=== PATIENT | male | born 1950 | race Hispanic/Latino ===

== ENCOUNTER 2017-06-28 13:14 | Day surgery (SDC) | payer MEDICARE ==
[~2017-06-28 13:14] MED LIST: ROBINUL ONE; XYLOCAINE MPF 2% ONE
--- NOTE | 2017-06-28 13:15 | History and Physical Report ---
History of Present Illness Date of examination: 06/28/17 Date of admission: 06/28/2017 Chief complaint: Colorectal cancer screening. History of present illness: Patient's is 66-year-old male who presents for colorectal cancer screening. No additional complaints are provided. Past History Past Medical History: hypertension Social history: denies: smoking, alcohol abuse Medications and Allergies Allergies Allergy/AdvReac Type Severity Reaction Status Date / Time No Known Allergies Allergy Unverified 06/26/17 11:38 Active Meds: Active Medications Sodium Chloride (Nacl 0.9% 1000 Ml) 1,000 mls @ 50 mls/hr IV DIRECT JESSE Review of Systems All systems: negative Exam - Constitutional General appearance: Present: no acute distress, well-nourished - EENT Eyes: Present: PERRL ENT: hearing intact, clear oral mucosa - Neck Neck: Present: supple, normal ROM - Respiratory Respiratory effort: normal Respiratory: bilateral: CTA - Cardiovascular Heart Sounds: Present: S1 & S2. Absent: rub, click - Extremities Extremities: pulses symmetrical, No edema Peripheral Pulses: within normal limits - Abdominal General gastrointestinal: Present: soft, non-tender, non-distended, normal bowel sounds Male genitourinary: Present: normal - Integumentary Integumentary: Present: clear, warm, dry - Musculoskeletal Musculoskeletal: gait normal, strength equal bilaterally - Psychiatric Psychiatric: appropriate mood/affect, intact judgment & insight - Neurologic Neurologic: CNII-XII intact, moves all extremities Assessment and Plan Colorectal cancer screening. Plan: Colonoscopy will be done to evaluate patient. Additional recommendations will be made depending on the findings on colonoscopy.
[2017-06-28] MEDS: NACL 0.9% 1000 ML 1,000 ML IV SCH ×2 (14:39→17:05)
[2017-06-28] MEDS ORDERED: WATER FOR IRRIG STERILE IR ONE (15:50)
--- NOTE | 2017-06-28 15:56 | Anesthesia Day of Surgery ---
Anesthesia Day of Surgery - Day of Surgery Patient Examined: Yes Patient H&P Reviewed: Yes Patient is NPO: Yes
--- NOTE | 2017-06-28 15:56 | Anesthesia Consultation ---
Anesthesia Consult and Med Hx Date of service: 06/28/17 - Airway Anesthetic Teeth Evaluation: Edentulous ROM Head & Neck: Adequate Mental/Hyoid Distance: Adequate Mallampati Class: Class II Intubation Access Assessment: Probably Good - Pulmonary Exam CTA: Yes - Cardiac Exam Cardiac Exam: RRR - Pre-Operative Health Status ASA Pre-Surgery Classification: ASA3 Proposed Anesthetic Plan: MAC - Pulmonary Hx Smoking: Yes COPD: Yes (USES INHALER) Hx Sleep Apnea: No - Cardiovascular System Hx Hypertension: Yes Hx Peripheral Vascular Disease: Yes - Central Nervous System Hx Neuromuscular Disorder: No Hx Psychiatric Problems: No - Gastrointestinal Hx Gastroesophageal Reflux Disease: No - Endocrine Hx Renal Disease: No Hx Insulin Dependent Diabetes: No - Hematic Hx Anemia: No Hx Sickle Cell Disease: No - Other Systems Hx Alcohol Use: No Hx Substance Use: Yes (RECOVERING ADDICT) Hx Cancer: No Hx Obesity: No
[2017-06-28] MEDS ORDERED: DIPRIVAN 10 MG/ML IV ONE ×5 (15:59→17:33)
[2017-06-28] MEDS ORDERED: GI SPOT IJ ONE (16:20)
[2017-06-28] MEDS ORDERED: D50W (25GM) Syringe IV ONE (16:43)
[2017-06-28] MEDS ORDERED: ZOFRAN ONE (17:58)
[2017-06-28] MEDS ORDERED: DILAUDID ONE (18:01)
--- NOTE | 2017-06-28 18:16 | Operative Report ---
Operative Report Operative Report: Date of procedure: 06/28/2017 Procedure: Colonoscopy with Endoscopic mucosal resection, Hot Biopsy Polypectomy with avulsion of residual polyp , Submucosal injection, Ablation of polyp base, Multiple hemoclip applications. Attending physician: Erwin Carter MD Plant Sciences Professor: Erwin Carter MD Indication: Patient is a 66-year-old male who presents for screening colonoscopy. This colonoscopy serves to evaluate patient so that treatment may be directed based on the findings. Consent: Informed consent was obtained after advising the patient and family regarding nature of this procedure, its indications, potential benefits as well as possible complications including but not limited to bleeding perforation and adverse reaction to medication, infection as well as other cardiopulmonary complications. An informed written and verbal consent was then obtained after due opportunity was provided for questions and answers. Monitoring: Patient was monitored continuously with pulse oximetry and electrocardiographic recordings as well as blood pressure recordings. Vital signs remained stable throughout this procedure with no untoward events. Preoperative assessment: Patient was assessed immediately prior to this procedure for capacity to tolerate monitored anesthesia care and moderate sedation as well as general anesthesia. Patient's ASA classification is 2, Mallampati class is 2, Hyomental distance is 3. Instrument: [employer] video colonoscope Medications: Propofol given intravenously in divided doses. For details please refer to anesthesia records. Description of procedure: Patient was placed in the left lateral decubitus position after achieving sedation, a digital rectal examination was performed following which the colonoscope was introduced into the anal verge and advanced to the cecum which was identified by the cecal valve, the appendiceal orifice, as well as by the cecal strap and direct transillumination. The colonoscope was subsequently withdrawn with careful inspection of all mucosal surfaces. Patient tolerated this procedure well and was subsequently taken to the recovery room. The following findings were noted. Findings: Patient had thick densely adherent liquid stool in various sections of the colon. This was vigorously irrigated as much as possible to improve and optimized the visualization of the colon. There were a few scattered diverticula in the sigmoid colon, descending colon and ascending colon. There was a large semi-circumferential polypoid mass lesion seen at the hepatic flexure. This was broad-based and sessile. The endoscopic appearance suggestive possible large polyp versus colon cancer. This was injected with submucosal injection of saline to elevate. After elevating this polyp, endoscopic mucosal resection was performed. Residual polyp at the edges were removed by hot biopsy using the avulsion technique. Subsequently, the base of the polyp and the edges were then ablated completely. Following this, multiple hemoclips were used to close the defect. In all 3 hemoclips were applied. The rest of the colon to the cecum was otherwise normal except for substantial retained stool . On the retroflex view at the anal verge, patient had internal hemorrhoids. Impression: Large semi-circumferentially distributed polypoid mass lesion at the hepatic flexure, status post endoscopic mucosal resection with submucosal injection of saline and removal of polyp with large stiff snare, subsequent removal of residual polyp at polyp edges using hot biopsy forceps with avulsion of any residual polypoid-looking material, also ablation of polyp edges and base , and closure of the defect with multiple hemoclips.. Diverticula disease of the colon. Internal hemorrhoids. Plan: Follow pathology report. If the pathology suggests invasive cancer that is beyond the mucosa, patient may still require surgical resection. It should be noted however that post-colonoscopy there did not appear to be any residual lesion. If however, polypectomy suggests complete polyp removal, a repeat colonoscopy should be done within 6 months for surveillance and also given that the patient had poor colonoscopic preparation to visualize much more carefully the rest of the colon. High-fiber diet. Patient to follow-up in one week as outpatient.
--- NOTE | 2017-06-28 18:16 | Post Anesthesia Evaluation ---
- Post Anesthesia Evaluation Patient Participated: Yes Airway Patent: Yes Stable Respiratory Function: Yes Nausea/Vomiting: No Temp > 96.8F: Yes Pain Manageable: Yes Adequeate Hydration: Yes Anesthesia Complications: No Block Receding Appropriately: Not Applicable Patient on Ventilator: No
--- NOTE | 2017-06-28 18:17 | Discharge Summary ---
Short Stay Discharge Plan Activity: advance as tolerated Weight Bearing Status: Weight Bear as Tolerated Diet: clear liquids Follow up with: YUNG ALEXANDER MD [Primary Care Provider] - 7 Days
[2017-06-28] MEDS ORDERED: ZOFRAN IV ONE (18:30)
[2017-06-28] MEDS ORDERED: DILAUDID IV ONE (18:31)
[2017-06-28 19:01] VITALS: BP 126/64
== END 2017-06-28 13:15 | disposition home or self-care (01) ==
LOC: GIO 13:14 → EDBD 13:14 → GIO 13:15
PROVIDERS: ATTEND Internal Medicine Gastroenterology
DX: Z12.11 Encounter for screening for malignant neoplasm of colon (principal); K63.5 Polyp of colon; K64.8 Other hemorrhoids; K57.30 Diverticulosis of large intestine without perforation or abscess without bleeding; I10 Essential (primary) hypertension; Z79.899 Other long term (current) drug therapy
CPT/HCPCS: 45384; 45390; 82962; 88305; J1170; J2405; J2704; J7030